=== PATIENT | female | born 1990 | race Two or more races ===

== ENCOUNTER 2017-05-04 13:54 | Emergency (ER) | payer SELFPAY ==
[2017-05-04 14:11] VITALS: RESP 18; TEMP 98.7; O2SAT 100
--- NOTE | 2017-05-04 15:21 | RAD ---
HISTORY: Cough. COMPARISON: No prior. TECHNIQUE: Chest PA and lateral FINDINGS: LUNGS: No active pulmonary disease. PLEURA: No significant pleural effusion identified. No pneumothorax apparent. CARDIOVASCULAR: Normal. OSSEOUS STRUCTURES: No significant abnormalities. VISUALIZED UPPER ABDOMEN: Normal. OTHER FINDINGS: None. IMPRESSION: No active disease.
[2017-05-04] MEDS ORDERED: guaiFENesin DM 200 mg-20 mg/10 ml UD PO STA (15:46)
--- NOTE | 2017-05-04 15:57 | ED PDOC ---
Arrival/HPI - General Chief Complaint: Cough, Cold, Congestion Time Seen by Provider: 05/04/17 14:45 Historian: Patient - History of Present Illness Narrative History of Present Illness (Text): 05/04/17 15:47 26yo female with no PMhx present with complaint of cough and nasal congestion x one week. The siblings also have similar symptoms. Denies fever, chills, nausea , vomiting, abdominal pain, sore throat, any other complaint. Past Medical History - Provider Review Nursing Documentation Reviewed: Yes - Cardiac Hx Cardiac Disorders: No - Pulmonary Hx Respiratory Disorders: No - Neurological Hx Neurological Disorder: No - HEENT Hx Glaucoma: Yes (both eyes) - Psychiatric Hx Substance Use: No Family/Social History - Physician Review Nursing Documentation Reviewed: Yes Family/Social History: Unknown Family HX Smoking Status: Never Smoked Hx Alcohol Use: No Hx Substance Use: No Allergies/Home Meds Allergies/Adverse Reactions: Allergies No Known Allergies Allergy (Verified 05/04/17 14:11) Home Medications: Home Meds Medication Instructions Recorded Confirmed Timolol 0.25% Ophth [Timoptic 1 drop BOTHEYES BID 05/04/17 05/04/17 0.25% Ophth Soln] Review of Systems - Physician Review All systems were reviewed & negative as marked: Yes - Review of Systems Constitutional: Normal Eyes: Normal ENT: Sinus Congestion Respiratory: absent: Cough, Sputum, Wheezing Cardiovascular: Normal Gastrointestinal: Normal Genitourinary Female: Normal Musculoskeletal: Normal Skin: Normal Neurological: Normal Endocrine: Normal Hemo/Lymphatic: Normal Psychiatric: Normal Physical Exam Vital Signs Reviewed: Yes Vital Signs Temp Pulse Resp BP Pulse Ox 05/04/17 16:28 72 18 119/76 100 05/04/17 14:07 98.7 F 100 H 18 121/82 100 Temperature: Afebrile Blood Pressure: Normal Pulse: Regular Respiratory Rate: Normal Appearance: Positive for: Well-Appearing, Non-Toxic, Comfortable Pain Distress: None Mental Status: Positive for: Alert and Oriented X 3 - Systems Exam Head: Present: Atraumatic, Normocephalic Pupils: Present: PERRL Extroacular Muscles: Present: EOMI Conjunctiva: Present: Normal Mouth: Present: Moist Mucous Membranes Nose (Internal): Present: Normal Inspection Neck: Present: Normal Range of Motion Respiratory/Chest: Present: Clear to Auscultation, Good Air Exchange. No: Respiratory Distress, Accessory Muscle Use, Wheezes, Decreased Breath Sounds, Rales, Retracting, Rhonchi, Tachypneic Cardiovascular: Present: Regular Rate and Rhythm, Normal S1, S2. No: Murmurs Abdomen: Present: Normal Bowel Sounds. No: Tenderness, Distention, Peritoneal Signs Back: Present: Normal Inspection Upper Extremity: Present: Normal Inspection. No: Cyanosis, Edema Lower Extremity: Present: Normal Inspection. No: Edema Neurological: Present: GCS=15, CN II-XII Intact, Speech Normal Skin: Present: Warm, Dry, Normal Color. No: Rashes Psychiatric: Present: Alert, Oriented x 3, Normal Insight, Normal Concentration Medical Decision Making ED Course and Treatment: 05/04/17 20:05 PT was not in any distress in ED. Afebrile and hemodynamically stable. CXR NAD Rapid strep and flu was negative PT treated with Zpack and antitussive for URI Result was DW the pt. She was Referred to her PMD/Clinic - Lab Interpretations Lab Results: Lab Results 05/04/17 14:30: Influenza Typ A,B (EIA) Negative for flu a/b, Grp A Beta Strep Ag Negative - RAD Interpretation Radiology Orders: 05/04/17 14:46 CHEST TWO VIEWS (PA/LAT) [RAD] Stat - Medication Orders Current Medication Orders: Discontinued Medications Azithromycin (Zithromax) 500 mg PO STAT STA PRN Reason: Protocol Stop: 05/04/17 15:47 Last Admin: 05/04/17 15:58 Dose: 500 mg Guaifenesin/Dextromethorphan (Robitussin Dm) 10 ml PO Q4H STA Stop: 05/04/17 15:47 Last Admin: 05/04/17 15:58 Dose: 10 ml Disposition/Present on Arrival - Present on Arrival Any Indicators Present on Arrival: No History of DVT/PE: No History of Uncontrolled Diabetes: No Urinary Catheter: No History of Decub. Ulcer: No History Surgical Site Infection Following: None - Disposition Have Diagnosis and Disposition been Completed?: Yes Diagnosis: URI (upper respiratory infection) Disposition: HOME/ ROUTINE Disposition Time: 16:00 Patient Plan: Discharge Condition: STABLE Discharge Instructions (ExitCare): Viral Upper Respiratory Infection, Adult (DC ) Additional Instructions: follow up with your doctor Return to ED for any new or worsening symptoms Prescriptions: Azithromycin [Zithromax] 250 mg PO DAILY #4 tab Benzonatate [Tessalon Perle] 100 mg PO TID #20 capsule Loratadine/Pseudoephedrine [Claritin-D 24 Hour Tablet] 1 each PO DAILY #30 tab.er.24h Referrals: PCP,NO [Primary Care Provider] - Follow up with primary [facility] [place]] - Follow up with primary Forms: [employer] ([place])
[2017-05-04 16:04] LABS: INFLUENZA A B NEGATIVE FOR FLU A/B (NEGATIVE)
[2017-05-04 16:28] VITALS: BP 119/76; PULSE 72
== END 2017-05-04 16:28 | disposition home or self-care (01) ==
LOC: ED 13:54
DX: J06.9 Acute upper respiratory infection, unspecified (principal)